=== PATIENT | male | born 1945 | race Caucasian/White ===

== ENCOUNTER 2022-12-10 11:06 | Emergency (ER) | payer MEDICARE ==
--- NOTE | 2022-12-10 11:09 | ERPHSYRPT ---
- History of Present Illness Time Seen by Provider: 12/10/22 11:09 Source: patient Exam Limitations: no limitations Physician History: This is a 77-year-old white male patient of Dr. Welsh on Xarelto as a portion of treatment for atrial fibrillation and presents to the emergency department with hematuria. He noticed hematuria this morning when he was using the restr oom. Patient denies chest pain. He denies shortness of breath. He has no abdominal pain. He has no dizziness. He presents to the emergency department with his vital signs stable. He was told by his urologist Dr. Driscoll office to come into the emergency department to be evaluated. Patient has a history of gastroesophageal reflux disease, hypertension, BPH, COPD, chronic renal issues, coronary artery disease, anxiety disorder and has a pacemaker in place. Timing/Duration: today Activites at Onset: none Quality: other (No pain) Pain Radiation: none Severity of Pain-Max: none Severity of Pain-Current: none Modifying Factors: Improves With: nothing Associated Symptoms: other (Hematuria) Prior abdominal problems: none Sexual intercourse history: non-contributory Allergies/Adverse Reactions: sertraline HCl [From Zoloft] Allergy (Severe, Verified 06/14/14 08:59) pt states he has bad thoughts. Home Medications: Budesonide/Formoterol Fumarate [Symbicort 160-4.5 Mcg Inhaler] 1 puff IH BID 04/28/13 [History] Alirocumab [Praluent Pen] 150 mg SQ 12/10/22 [History] Fenofibrate Nanocrystallized [Tricor] 12/10/22 [History] Labetalol HCl 100 mg [Trandate 100 MG] 100 mg PO BID 12/10/22 [History] Losartan/Hydrochlorothiazide [Losartan-Hctz 100-25 mg Tab] 1 each PO DAILY 12/10/22 [History] Rivaroxaban [Xarelto] 20 mg PO 12/10/22 [History] dilTIAZem HCL [Diltiazem ER] 240 mg PO DAILY 12/10/22 [History] Hx Influenza Vaccination/Date Given: Yes (2012) Hx Pneumococcal Vaccination/Date Given: Yes (2012) Travel Risk - International Travel Have you traveled outside of the country in past 3 weeks: No - Coronavirus Screening Are you exhibiting any of the following symptoms?: No Close contact with a COVID-19 positive Pt in past 14-21 Days: No - Past Medical History Pertinent Past Medical History: Yes Neurological History: No Pertinent History ENT History: No Pertinent History Cardiac History: Arrhythmia, Coronary Artery Disease, High Cholesterol, Hypertension Respiratory History: COPD, Other Endocrine Medical History: Other Musculoskeletal History: Arthritis GI Medical History: Diverticulitis, Diverticulosis, GERD, Hernia History: No Pertinent History Psycho-Social History: Anxiety, Bipolar, Depression Male Reproductive Disorders: Prostate Problems Other Medical History: Parathyroid removed many years ago. Polycystic kidney dx. Prostate CA (remission). Pacemaker - Past Surgical History Past Surgical History: Yes Neuro Surgical History: No Pertinent History Cardiac: Cardiac Catheterization Respiratory: Other Gastrointestinal: Hemorrhoidectomy Genitourinary: No Pertinent History Musculoskeletal: No Pertinent History Male Surgical History: Other Other Surgical History: Colonoscopy's with polyps removed. Repairred hole in right lung. parathyroid - Social History Smoking Status: Former smoker Exposure to second hand smoke: No Drug Use: none Patient Lives Alone: No - Review of Systems Constitutional: No Symptoms Eyes: No Symptoms Ears, Nose, & Throat: No Symptoms Respiratory: No Symptoms Cardiac: No Symptoms Abdominal/Gastrointestinal: No Symptoms Genitourinary Symptoms: Hematuria Musculoskeletal: No Symptoms Skin: No Symptoms Neurological: No Symptoms Psychological: No Symptoms Endocrine: No Symptoms Hematologic/Lymphatic: No Symptoms Immunological/Allergic: No Symptoms All Other Systems: Reviewed and Negative - Nursing Vital Signs Nursing Vital Signs: Initial Vital Signs Temperature 97.5 F 12/10/22 11:13 Pulse Rate 70 12/10/22 11:13 Respiratory Rate 20 12/10/22 11:13 Blood Pressure 191/56 12/10/22 11:13 O2 Sat by Pulse Oximetry 99 12/10/22 11:13 Pain Scale Pain Intensity 0 - Physical Exam General Appearance: no apparent distress, alert Eye Exam: PERRL/EOMI, eyes nml inspection Ears, Nose, Throat Exam: normal ENT inspection, moist mucous membranes Neck Exam: normal inspection, non-tender, supple, full range of motion Respiratory Exam: airway intact, No chest tenderness, No respiratory distress Gastrointestinal/Abdomen Exam: No tenderness Rectal Exam: not done Back Exam: normal inspection, normal range of motion, No CVA tenderness, No vertebral tenderness Neurologic Exam: alert, oriented x 3, cooperative, [employer] worker II-XII nml as tested, normal mood/affect, nml cerebellar function, nml station & gait, sensation nml Skin Exam: normal color, warm, dry Lymphatic Exam: No adenopathy SpO2 Interpretation: normal O2 Delivery: Room Air - Course Nursing assessment & vital signs reviewed: Yes Ordered Tests: Active Orders 24 hr Category Date Time Status BMP Stat Lab 12/10/22 11:50 Completed CBC W DIFF Stat Lab 12/10/22 11:50 Completed CULTURE,URINE Stat Lab 12/10/22 11:38 Received UA W/RFX UR CULTURE Stat Lab 12/10/22 11:38 Completed Lab/Rad Data: Laboratory Result Diagrams 12/10/22 11:50 12/10/22 11:50 Laboratory Results 12/10/22 12/10/22 12/10/22 Range/Units 11:50 11:50 11:38 WBC 5.0 (4.0-10.5) x10^3/uL RBC 4.28 (4.1-5.6) x10^6/uL Hgb 12.9 (12.5-18.0) g/dL Hct 40.2 L (42-50) % MCV 93.9 (78-100) fL MCH 30.1 (26-32) pg MCHC 32.1 (32-36) g/dL RDW 13.7 (11.5-14.0) % Plt Count 186 (150-450) x10^3/uL MPV 9.0 (7.5-11.0) fL Gran % 64.7 (36.0-66.0) % Immature Gran % (Auto) 0.6 H (0.00-0.4) % Nucleat RBC Rel Count 0.0 (0.00-0.1) % Eos # (Auto) 0.31 (0-0.5) x10^3/uL Immature Gran # (Auto) 0.03 (0.00-0.03) x10^3u/L Absolute Lymphs (auto) 1.05 (1.0-4.6) x10^3/uL Absolute Monos (auto) 0.35 (0.0-1.3) x10^3/uL Absolute Nucleated RBC 0.00 (0.00-0.01) x10^3u/L Lymphocytes % 20.9 L (24.0-44.0) % Monocytes % 7.0 (0.0-12.0) % Eosinophils % 6.2 H (0.00-5.0) % Basophils % 0.6 (0.0-0.4) % Absolute Granulocytes 3.25 (1.4-6.9) x10^3/uL Basophils # 0.03 (0-0.4) x10^3/uL Sodium 141 (137-145) mmol/L Potassium 4.4 (3.5-5.1) mmol/L Chloride 106 (98-107) mmol/L Carbon Dioxide 28 (22-30) mmol/L Anion Gap 11.6 (5-15) MEQ/L BUN 36 H (9-20) mg/dL Creatinine 1.63 H (0.66-1.25) mg/dL Estimated GFR 43.6 ML/MIN Glucose 170 H (74-106) mg/dL Calcium 9.8 (8.4-10.2) mg/dL Urine Color Red A (Yellow) Urine Appearance Turbid A (Clear) Urine pH 5.0 (4.6-8.0) Ur Specific [place] 1.020 (1.005-1.030) Urine Protein 100 A (Negative) Urine Glucose (UA) Negative (Negative) mg/dL Urine Ketones Negative (Negative) Urine Blood Large A (Negative) Urine Nitrite Positive A (Negative) Urine Bilirubin Small A (Negative) Urine Urobilinogen 0.2 (0.2) mg/dL Ur Leukocyte Esterase Moderate A (Negative) U Hyaline Cast (Auto) 3-5 A (0-2) /LPF Urine Microscopic RBC >100 A (0-5) /HPF Urine Microscopic WBC 21-50 A (0-5) /HPF Ur Epithelial Cells None Seen (None Seen) /HPF Urine Bacteria Many A (None Seen) /HPF Urine Culture Reflexed YES (NO) - Progress Progress: unchanged Progress Note: 12/10/22 12:47 This patient's medical issue is 1 of low complexity. The level of complexity and the work-up performed is based on review of the patient's past medical history, review of medication list, drug allergy list review, history present illness and physical finds on examination. The patient work-up includes CBC, urinalysis and BMP. Patient does have a urinary/kidney/bladder infection. We will remotely send a prescription of Cipro 500 mg orally twice a day x7 days to the patient's pharmacy. Patient is to stop his Xarelto. He is to call his specialists to make them aware that he is stopping his Xarelto and to obtain further instructions and management. Counseled pt/family regarding: lab results, diagnosis, need for follow-up Medical Desision Making - Diagnostic Testing Diagnostic test were ordered, analyzed, and reviewed by me: Yes - Risk of complications The pt has a mod risk of morbidity or mortality based on: Need for prescription drug management - Departure Departure Disposition: Home Clinical Impression: Hematuria, UTI (urinary tract infection) Condition: Stable Critical Care Time: No Referrals: GERMÁN WELSH MD [Primary Care Provider] - Follow up/PCP as directed Additional Instructions: Drink plenty of fluids. Stop your Xarelto for 48 hours. Call all your specialists and prescribing providers today and make them aware that you have been told to stop your Xarelto. They should also provide you with a follow-up appointment for further evaluation and management. Take your antibiotics as prescribed Prescriptions: Ciprofloxacin [Cipro 500 MG] 500 mg PO BID #14 tablet
[2022-12-10 11:19] VITALS: TEMP 97.5
[2022-12-10 11:55] LABS: Absolute Neutrophil Ct (ANC) 3.25 x10^3/uL (1.4-6.9); BASOPHIL % 0.6 % (0.0-0.4); Basophil (Absolute #) 0.03 x10^3/uL (0-0.4); Eosinophil % 6.2 % (0.00-5.0); Eosinophil (Absolute #) 0.31 x10^3/uL (0-0.5); Hematocrit 40.2 % (42-50); Hemoglobin 12.9 g/dL (12.5-18.0); IMMATURE GRAN # 0.03 x10^3u/L (0.00-0.03); IMMATURE GRAN % 0.6 % (0.00-0.4); Lymphocyte (Absolute #) 1.05 x10^3/uL (1.0-4.6); Lymphocytes % 20.9 % (24.0-44.0); Mean Cell Volume 93.9 fL (78-100); Mean Corpuscular Hemoglobin 30.1 pg (26-32); Mean Corpuscular Hgb Concent. 32.1 g/dL (32-36); Monocyte (Absolute #) 0.35 x10^3/uL (0.0-1.3); Neutrophil % 64.7 % (36.0-66.0); Platelet Count 186 x10^3/uL (150-450); Red Blood Count 4.28 x10^6/uL (4.1-5.6); Red Cell Distribution Width 13.7 % (11.5-14.0)
[2022-12-10 12:09] LABS: ANION GAP 11.6 MEQ/L (5-15); Calcium 9.8 mg/dL (8.4-10.2); Creatinine 1 1.63 mg/dL (0.66-1.25); EST GLOMERULAR FILTRATION RATE 43.6 ML/MIN; Potassium 4.4 mmol/L (3.5-5.1)
[2022-12-10 12:42] LABS: ADD URINE CULTURE? YES (NO); Appearance Turbid (Clear); Bacteria Many /HPF (None Seen); Bilirubin Small (Negative); Blood Large (Negative); Epithelial Cells None Seen /HPF (None Seen); Glucose, Urine Negative (Negative); Ketones Negative (Negative); Leukocyte Esterase Moderate (Negative); Nitrite Positive (Negative); Protein,Urine Dip 100 (Negative); RBC >100 /HPF (0-5); Urobilinogen 0.2 mg/dL (0.2); WBC 21-50 /HPF (0-5)
[2022-12-10 12:52] VITALS: BP 159/83; PULSE 73; RESP 15; O2SAT 94
== END 2022-12-10 13:00 | disposition home or self-care (01) ==
LOC: ED 11:06
DX: N39.0 Urinary tract infection, site not specified (principal); R31.9 Hematuria, unspecified; I12.9 Hypertensive chronic kidney disease with stage 1 through stage 4 chronic kidney disease, or unspecified chronic kidney disease; N18.9 Chronic kidney disease, unspecified; E78.5 Hyperlipidemia, unspecified; Z79.01 Long term (current) use of anticoagulants; Z79.899 Other long term (current) drug therapy
CPT/HCPCS: 36415; 80048; 81001; 85025; 87086; 99282